=== PATIENT | male | born 1970 | race Caucasian/White ===

== ENCOUNTER 2017-04-16 13:34 | Emergency (ER) | payer MEDICAID ==
[~2017-04-16] VITALS: Ht 177.8 cm; Wt 97.5 kg
[2017-04-16 13:40] VITALS: BP_SYST 164
[2017-04-16 14:50] VITALS: BP_SYST 155
== END 2017-04-16 14:50 | disposition home or self-care (01) ==
LOC: SED 13:34
DX: L03.116 Cellulitis of left lower limb (principal); W19.XXXA Unspecified fall, initial encounter; Y93.89 Activity, other specified; Y92.89 Other specified places as the place of occurrence of the external cause; Y99.8 Other external cause status
CPT/HCPCS: 99283

== ENCOUNTER 2017-04-22 19:19 | Emergency (ER) | payer MEDICAID ==
[~2017-04-22] VITALS: Ht 177.8 cm; Wt 97.5 kg
[2017-04-22 19:30] VITALS: BP_SYST 144
== END 2017-04-22 19:30 | disposition left against medical advice (07) ==
LOC: SED 19:19
DX: M79.672 Pain in left foot (principal); Z53.21 Procedure and treatment not carried out due to patient leaving prior to being seen by health care provider

== ENCOUNTER 2017-04-23 16:27 | Emergency (ER) | payer MEDICAID ==
[~2017-04-23] VITALS: Ht 177.8 cm; Wt 97.5 kg
[2017-04-23 16:27] VITALS: BP_SYST 166
[2017-04-23] MEDS ORDERED: BACITRACIN 1 GM OINT TP ONE (17:45)
[2017-04-23] MEDS ORDERED: CEPHALEXIN 500 MG CAPSULE PO ONE (17:45)
[2017-04-23 18:07] VITALS: BP_SYST 148
== END 2017-04-23 18:07 | disposition home or self-care (01) ==
LOC: SED 16:27
DX: L03.116 Cellulitis of left lower limb (principal)
CPT/HCPCS: 99284

== ENCOUNTER 2017-05-10 08:43 | Emergency (ER) | payer MEDICAID ==
[~2017-05-10] VITALS: Ht 177.8 cm; Wt 97.5 kg
[2017-05-10 08:43] VITALS: BP_SYST 151
[2017-05-10 09:29] VITALS: BP_SYST 146
== END 2017-05-10 09:26 | disposition home or self-care (01) ==
LOC: SED 08:43
DX: M72.2 Plantar fascial fibromatosis (principal)
CPT/HCPCS: 99284

== ENCOUNTER 2018-12-28 10:49 | Emergency (ER) | payer MEDICAID ==
[~2018-12-28] VITALS: Ht 177.8 cm; Wt 97.5 kg
[2018-12-28 10:50] VITALS: BP_SYST 153
[2018-12-28] MEDS ORDERED: TETRACAINE (PONTOCAINE) TOPICAL 30 ML SOLUTION TP ONE (10:50)
--- NOTE | 2018-12-28 10:50 | NUR ---
BROUGHT BACK TO BED #7 AND TRIAGED, REPORT GIVEN TO GUERRERO
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
[2018-12-28] MEDS ORDERED: TETRACAINE HCL 0.5% OPHTHALMIC DROPS 15 ML OP ONE (11:15)
--- NOTE | 2018-12-28 11:15 | NUR ---
ER Dr. Clinton at bedside examining patient.
--- NOTE | 2018-12-28 11:20 | NUR ---
DR. Clinton at bedside to irrigate right eye and removal of foreign body
[2018-12-28 11:35] VITALS: BP_SYST 145
--- NOTE | 2018-12-28 11:35 | NUR ---
Patient given written and verbal discharge instructions and verbalizes understanding. ER MD discussed with patient the results and treatment provided. Patient in stable condition. ID arm band removed. Rx of Tylenol with Codeine, Oflaxacin, Acular given. Patient educated on pain management and to follow up with PMD. Pain Scale 0/10. Opportunity for questions provided and answered. Medication side effect fact sheet provided.
== END 2018-12-28 11:35 | disposition home or self-care (01) ==
LOC: SED 10:49
DX: T15.11XA Foreign body in conjunctival sac, right eye, initial encounter (principal); R03.0 Elevated blood-pressure reading, without diagnosis of hypertension; X58.XXXA Exposure to other specified factors, initial encounter; Y93.89 Activity, other specified; Y92.89 Other specified places as the place of occurrence of the external cause; Y99.8 Other external cause status
CPT/HCPCS: 99283; 99284

== ENCOUNTER 2019-02-16 20:11 | Emergency (ER) | payer SELFPAY ==
[~2019-02-16] VITALS: Ht 177.8 cm; Wt 97.5 kg
[2019-02-16 20:25] VITALS: BP_SYST 140
--- NOTE | 2019-02-16 21:15 | NUR ---
Pt ambulatory to bed 7 for evaluation
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
[2019-02-16] MEDS ORDERED: KETOROLAC TROMETHAMINE 60 MG/2 ML VIAL IM ONE (21:45)
--- NOTE | 2019-02-16 21:45 | NUR ---
Dr Livingston at bedside examining patient
--- NOTE | 2019-02-16 22:08 | NUR ---
Patient given written and verbal discharge instructions and verbalizes understanding. ER MD discussed with patient the results and treatment provided. Patient in stable condition. ID arm band removed. Rx of Motrin given. Patient educated on pain management and to follow up with PMD. Pain Scale 3/10 tolerable for patient. Opportunity for questions provided and answered. Medication side effect fact sheet provided.
== END 2019-02-16 22:06 | disposition home or self-care (01) ==
LOC: SED 20:11
DX: S80.01XA Contusion of right knee, initial encounter (principal); R03.0 Elevated blood-pressure reading, without diagnosis of hypertension; V89.2XXA Person injured in unspecified motor-vehicle accident, traffic, initial encounter; Y93.89 Activity, other specified; Y92.410 Unspecified street and highway as the place of occurrence of the external cause; Y99.8 Other external cause status
CPT/HCPCS: 73564; 96372; 99283; J1885

== ENCOUNTER 2019-08-12 19:57 | Emergency (ER) | payer OTHER ==
[~2019-08-12] VITALS: Ht 177.8 cm; Wt 99.8 kg
[2019-08-12 20:35] VITALS: BP_SYST 162
[2019-08-12] MEDS ORDERED: HYDROcodone/ACETAMIN 7.5-325 MG TAB PO ONE (22:45)
[2019-08-12] MEDS ORDERED: BACITRACIN 1 GM OINT TP ONE (22:45)
[2019-08-12 23:55] VITALS: BP_SYST 155
== END 2019-08-12 23:55 | disposition home or self-care (01) ==
LOC: SED 19:57
DX: S82.831A Other fracture of upper and lower end of right fibula, initial encounter for closed fracture (principal); Z71.6 Tobacco abuse counseling; F17.210 Nicotine dependence, cigarettes, uncomplicated; V23.4XXA Motorcycle driver injured in collision with car, pick-up truck or van in traffic accident, initial encounter; Y93.55 Activity, bike riding; Y92.413 State road as the place of occurrence of the external cause; Y99.8 Other external cause status
CPT/HCPCS: 99283

== ENCOUNTER 2021-10-15 19:50 | Emergency (ER) | payer MEDICAID, SELFPAY ==
[~2021-10-15] VITALS: Ht 177.8 cm; Wt 99.8 kg
[2021-10-15 19:50] VITALS: BP_SYST 173
--- NOTE | 2021-10-15 19:50 | NUR ---
Patient to ER CHAIR for evaluation. .
--- NOTE | 2021-10-15 19:51 | NUR ---
PATIENT ARRIVES WITH SELF COMPLAINING OF LEFT ARMPIT BUMP X5 DAYS PAIN WAXES AND WANES. PATIENT'S BP ELEVATED AT 173/113 REPORTS NO SYMTOMS AND REFUSES TO TAKE MEDICATION. MD NOTIFED. PAIN 01/19
[2021-10-15] MEDS ORDERED: CEPH250C PO (20:03)
[2021-10-15] MEDS ORDERED: SULF1TAB48 PO (20:03)
[2021-10-15] MEDS ORDERED: ACET325T53 PO (20:03)
[2021-10-15 20:07] VITALS: BP_SYST 173
== END 2021-10-15 20:07 | disposition home or self-care (01) ==
LOC: SED 19:50
DX: L73.9 Follicular disorder, unspecified (principal)
CPT/HCPCS: 99283

== ENCOUNTER 2022-08-06 21:45 | Emergency (ER) | payer MEDICAID ==
[~2022-08-06] VITALS: Ht 177.8 cm; Wt 99.8 kg
[2022-08-06 21:45] VITALS: BP_SYST 193
[~2022-08-06 21:45] MED LIST: ACET325T53 PO; CEPH250C PO; SULF1TAB48 PO
--- NOTE | 2022-08-06 22:15 | NUR ---
PT FROM HOME WITH C/O CHEST PAIN THAT STARTED 3 DAYS AGO, MEDIAL AND NON-RADIATING. PT REPORTS THAT THE PAIN IS MORE PRESENT WHEN EATING. AMBULATORY, FOLLOWING COMMANDS, AND A&O X4. PT HYPERTENSIVE AT 198/118, MADE AWARE. PT PENDING MSE. SAFETY PRECAUTIONS IN PLACE AND CONNECTED TO MONITOR.
--- NOTE | 2022-08-06 22:15 | NUR ---
LAB AT BEDSIDE FOR BLOOD DRAW.
--- NOTE | 2022-08-06 22:28 | NUR ---
DR. HE AT BEDSIDE WITH PATIENT FOR EVALUATION.
[2022-08-06] MEDS ORDERED: MAG HYDROX/AL HYDROX/SIMETH 30 ML, DICYCLOMINE HCL 20 MG, LIDOCAINE VISCOUS 2% 15ML (PO... PO ONE ×3 (22:30)
[2022-08-06 22:32] LABS: HEMATOCRIT 41.5 % (36-54); WHITE BLOOD COUNT (AUTO) 5.4 K/uL (4.8-10.8)
[2022-08-06 22:37] LABS: ANION GAP 7 (5-15); BASOPHILS % (AUTO) 0.8 % (0.0-2.0); CALCIUM 9.3 mg/dL (8.4-11.0); CHLORIDE 103 mmol/L (98-107); CREATININE 1.41 mg/dL (0.55-1.30); EOSINOPHILS # (AUTO) 0.1 K/uL (0.0-0.4); EOSINOPHILS % (AUTO) 2.3 % (0.0-4.0); GLUCOSE 90 mg/dL (70-99); HEMOGLOBIN 14.1 g/dL (14.0-18.0); LYMPHOCYTES # (AUTO) 1.5 K/uL (1.0-5.5); LYMPHOCYTES % (AUTO) 28.3 % (20.5-51.5); MEAN CORPUSCULAR HEMOGLOBIN 29 pg (27-31); MEAN CORPUSCULAR HGB CONC 34 % (32-36); MEAN CORPUSCULAR VOLUME 86 fL (79.0-98.0); MONOCYTES # (AUTO) 1.2 K/uL (0.0-1.0); MONOCYTES % (AUTO) 22.3 % (1.7-9.3); NEUTROPHILS # (AUTO) 2.5 K/uL (1.8-7.7); NEUTROPHILS % (AUTO) 46.3 % (40.0-70.0); PLATELET COUNT (AUTO) 232 K/uL (130-430); RED BLOOD CELL COUNT(AUTO) 4.86 MIL/uL (4.2-6.2); RED CELL DISTRIBUTION WIDTH 14.4 % (9.0-15.0); UREA NITROGEN, BLOOD 28 mg/dL (8-21)
[2022-08-06 22:39] LABS: GFR AFRICAN AMERICAN 68 mL/min (>90)
[2022-08-06 22:46] LABS: ALANINE AMINOTRANSFERASE 31 U/L (12-78); ALBUMIN 3.6 g/dL (3.4-4.8); ASPARTATE AMINOTRANSFERASE 19 U/L (10-37); TOTAL BILIRUBIN 0.2 mg/dL (0.0-1.0)
--- NOTE | 2022-08-06 22:53 | NUR ---
MADE AWARE OF BP OF 160/110. NO NEW ORDERS AT THIS TIME.
[2022-08-06] MEDS ORDERED: ONDA-8 TL (23:06)
[2022-08-06] MEDS ORDERED: FAMO40TA71 PO (23:06)
[2022-08-06] MEDS ORDERED: ANT30 PO (23:06)
[2022-08-06] MEDS ORDERED: SIME80TA15 PO (23:06)
[2022-08-06 23:43] VITALS: BP_SYST 166
--- NOTE | 2022-08-06 23:43 | NUR ---
Patient given written and verbal discharge instructions and verbalizes understanding. ER DR. HE discussed with patient the results and treatment provided. Patient in stable condition. ID arm band removed. Rx of MYLANTA, PEPCID, ZOFRAN, MYLICON given. Patient educated on pain management and to follow up with PMD. Pain Scale 0. Opportunity for questions provided and answered. Medication side effect fact sheet provided.
== END 2022-08-06 23:43 | disposition home or self-care (01) ==
LOC: SED 21:45
DX: K29.70 Gastritis, unspecified, without bleeding (principal); R10.13 Epigastric pain; I12.9 Hypertensive chronic kidney disease with stage 1 through stage 4 chronic kidney disease, or unspecified chronic kidney disease; N18.9 Chronic kidney disease, unspecified; F15.20 Other stimulant dependence, uncomplicated; Z79.899 Other long term (current) drug therapy
CPT/HCPCS: 99284; 71045; 80053; 83880; 85025; 84484; 36415; J2001

== ENCOUNTER 2023-02-14 17:07 | Emergency (ER) | payer MEDICAID ==
[~2023-02-14 17:07] MED LIST changes: +ANT30 PO; +FAMO40TA71 PO; +ONDA-8 TL; +SIME80TA15 PO
[2023-02-15] MEDS ORDERED: IBUP-1969 PO (13:23)
== END 2023-02-14 19:30 | disposition left against medical advice (07) ==
LOC: SED 17:07
DX: R51.9 Headache, unspecified (principal); Z53.21 Procedure and treatment not carried out due to patient leaving prior to being seen by health care provider

== ENCOUNTER 2023-02-15 11:27 | Emergency (ER) | payer MEDICAID ==
[~2023-02-15] VITALS: Ht 172.7 cm; Wt 95.3 kg
[2023-02-15 11:36] VITALS: BP_SYST 194
--- NOTE | 2023-02-15 11:36 | NUR ---
Placed in room 04 . Placed on registered nurse cardiac, blood pressure machine and pulse oximeter. To gown for exam. Side rails up.
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
--- NOTE | 2023-02-15 11:45 | NUR ---
Dr Vazquez evaluating patient at bedside
[2023-02-15] MEDS ORDERED: IBUP-1969 PO (13:23)
[2023-02-15 13:28] VITALS: BP_SYST 194
--- NOTE | 2023-02-15 13:29 | NUR ---
Patient given written and verbal discharge instructions and verbalizes understanding. ER MD discussed with patient the results and treatment provided. Patient in stable condition. ID arm band removed. Rx of Ibuprofen given. Patient educated on pain management and to follow up with PMD. Pain Scale 2/10. Opportunity for questions provided and answered. Medication side effect fact sheet provided.
== END 2023-02-15 13:29 | disposition home or self-care (01) ==
LOC: SED 11:27
DX: S00.83XA Contusion of other part of head, initial encounter (principal); I16.0 Hypertensive urgency; Z79.899 Other long term (current) drug therapy; W21.11XA Struck by baseball bat, initial encounter; Y93.64 Activity, baseball; Y92.89 Other specified places as the place of occurrence of the external cause; Y99.8 Other external cause status
CPT/HCPCS: 70486-TC; 76376; 99284

== ENCOUNTER 2023-08-07 16:45 | Emergency (ER) | payer MEDICAID ==
[~2023-08-07] VITALS: Ht 177.8 cm; Wt 104.3 kg
[~2023-08-07 16:45] MED LIST changes: +IBUP-1969 PO
[2023-08-07 17:04] VITALS: BP_SYST 179; PULSE 105; RESP 18; TEMP 97.3; O2SAT 96
[2023-08-07] MEDS ORDERED: predniSONE 20 MG TABLET PO ONE (17:15)
[2023-08-07] MEDS ORDERED: KETOROLAC TROMETHAMINE 60 MG/2 ML VIAL IM ONE (17:15)
[2023-08-07] MEDS ORDERED: cloNIDine HCL 0.1 MG TABLET PO ONE (17:15)
[2023-08-07] MEDS ORDERED: LISI20TA30 PO (17:25)
[2023-08-07] MEDS ORDERED: DICL50TA9 PO (17:25)
[2023-08-07] MEDS ORDERED: METH-634 PO (17:25)
[2023-08-07] MEDS ORDERED: TRAM50TA2 PO (17:25)
[2023-08-07 17:45] VITALS: BP_SYST 148; PULSE 99; RESP 18; TEMP 97.3; O2SAT 96
== END 2023-08-07 17:44 | disposition home or self-care (01) ==
LOC: SED 16:45
DX: M54.42 Lumbago with sciatica, left side (principal); I10 Essential (primary) hypertension; Z79.899 Other long term (current) drug therapy
CPT/HCPCS: 99283; 96372; J7512; J1885